=== PATIENT | female | born 1985 | race Caucasian/White ===

== ENCOUNTER 2016-11-27 10:00 | Inpatient (IN) | payer MEDICAID ==
[~2016-11-27] VITALS: Ht 152.4 cm; Wt 82.0 kg
[2016-11-27 10:28] VITALS: Ht 152.4 cm; Wt 82.0 kg
[2016-11-27 10:29] VITALS: BP 103/59; PULSE 102; RESP 10
[2016-11-27] MEDS ORDERED: PREN1TAB79 PO (10:52)
--- NOTE | 2016-11-27 11:16 | TRIAGE ---
OB Triage Datetime Report Generated by CPN: 11/27/2016 11:16 Datetime: 11/27/2016 10:41 Time of Arrival: 11/27/2016 09:05 EGA: 36.1 Arrived By: Ambulatory Arrived From: Home Chief Complaint: SROM AT 0530 Movement: Present Contractions: Denies/Absent Rupture of Membranes: Ruptured Vaginal Bleeding: None Vaginal Discharge: Denies Recent Sexual Intercouse: Denies Abdominal Trauma: Not Applicable Patient Complaints: Other Initial Plan: EFM,CALL DR NUÑEZ Datetime: 11/27/2016 10:40 Maternal Assessment Level of Consciousness: Fully Conscious DTR's/Clonus: DTRs 2+; No Clonus Headache: Denies Blurred Vision: No Respiratory Effort: Unlabored; Regular Rhythm; Equal Expansion Breath Sounds, Left: Clear and Equal Breath Sounds, Right: Clear and Equal Nausea/Vomiting: Denies RUQ Epigastric Pain: Denies Facial Edema: None Temperature Route: Axillary Fall Risk Assessment History of Falling: (0) No Secondary Diagnosis: (0) No Ambulatory Aid: (0) Bedrest/Nurse Assist IV Therapy: (0) No Gait: (0) Normal/Bedrest/Immobile Mental Status: (0) Oriented to Own Ability Fall Score: 0 Fall Risk Score Definition: No Risk: No action required
[2016-11-27 11:19] LABS: ADD SCAN DIFF NO
[2016-11-27] MEDS: LACTATED RINGER'S 1,000 ML IV SCH ×3 (11:22→19:40)
[2016-11-27] MEDS ORDERED: METHYLERGONOVINE 0.2 MG INJ IM PRN ×2 (11:30→18:00)
[2016-11-27] MEDS ORDERED: MISOPROSTOL 200 MCG TAB PR PRN ×2 (11:30→18:00)
[2016-11-27] MEDS ORDERED: CARBOPROST 250 MCG INJ IM PRN ×2 (11:30→18:00)
[2016-11-27] MEDS ORDERED: OXYTOCIN 30 UNITS/LR 500 ML IV PRN ×2 (11:30→18:00)
[2016-11-27] MEDS ORDERED: CEFAZOLIN 2 GM/50 ML (PMX) 50 ML IV SCH (11:30)
[2016-11-27] MEDS ORDERED: OXYTOCIN 30 UNITS/LR 500 ML IV SCH (11:30)
[2016-11-27] MEDS ORDERED: ONDANSETRON 4 MG INJ IV STA (11:48)
[2016-11-27 11:58] LABS: BASOPHILS % 0.2 % (0.0-2.0); EOSINOPHILS # 0.2 10^3/ul (0.0-0.5); EOSINOPHILS % 1.3 % (0.0-7.0); HEMATOCRIT 35.2 % (37.0-47.0); HEMOGLOBIN 11.9 g/dl (12.0-16.0); LYMPHOCYTES % 8.7 % (15.0-51.0); MEAN CORPUSCULAR HEMOGLOBIN 31.3 pg (29.0-33.0); MEAN CORPUSCULAR HGB CONC 33.8 g/dl (32.0-37.0); MEAN CORPUSCULAR VOLUME 92.6 fl (82.0-101.0); MEAN PLATELET VOLUME 10.6 fl (7.4-10.4); MONOCYTE # 0.6 10^3/ul (0.3-0.9); MONOCYTES % 5.5 % (0.0-11.0); NEUTROPHIL # 9.6 10^3/ul (1.6-7.5); NEUTROPHILS % 83.2 % (39.0-77.0); PLATELET COUNT 263 10^3/UL (140-415); WHITE BLOOD COUNT 11.5 10^3/ul (4.8-10.8)
[2016-11-27] MEDS ORDERED: CITRIC ACID/SODIUM CITRATE 15 ML CUP PO PRN ×2 (12:00)
[2016-11-27] MEDS ORDERED: METOCLOPRAMIDE 10 MG INJ IM ONE (12:00)
[2016-11-27 12:01] LABS: PROTIME 13.2 Sec (12.2-14.2)
[2016-11-27 12:02] LABS: PARTIAL THROMBOPLASTIN TIME 27.3 Sec (25.0-35.0)
--- NOTE | 2016-11-27 14:19 | PREOPHP ---
DATE OF ADMISSION: 11/27/2016 HISTORY: A 31-year-old female, 3, para 1-0-1-1, estimated date of delivery 12/24/2016, at 3 6 weeks and 1 day, who presented with spontaneous rupture of membranes and labor contractions. PAST MEDICAL HISTORY: Unremarkable. PAST SURGICAL HISTORY: section. ALLERGIES: NO KNOWN ALLERGIES. FAMILY HISTORY: Noncontributory. PHYSICAL EXAMINATION: VITAL SIGNS: The patient is afebrile. Vital signs are stable. HEAD, NECK AND CHEST: Within normal limits. ABDOMEN: Soft, nontender and gravid. EXTREMITIES: Within normal limits. NEUROLOGIC: Within normal limits. IMPRESSION: at 36 weeks and 1 day, with a previous section, in labor. The patie nt does not desire a trial of labor. PLAN: Delivery by repeat section. The risks, benefits and alternatives of the procedure w ere explained to the patient. The patient said she understood and gave informed consent for the pro cedure. Dictated By: GRACE BUCHANAN/SILVINA Conf#: [id number] DID#: [id number]
[2016-11-27] MEDS ORDERED: FENTAnyl 50 MCG/ML VIAL ONE (14:59)
[2016-11-27] MEDS ORDERED: morphine SULFATE/PF (10 MG/10 ML) INJ ONE (14:59)
[2016-11-27] MEDS ORDERED: PHENYLephrine (100 MCG/ML) 5ML SYG ONE (15:14)
[2016-11-27] MEDS ORDERED: ONDANSETRON 4 MG INJ IV PRN (15:30)
[2016-11-27] MEDS ORDERED: HYDROmorphONE 1 MG/ML SYG IV PRN ×2 (15:30)
[2016-11-27] MEDS ORDERED: NALOXONE (0.4 MG/ML) INJ IV PRN (15:30)
[2016-11-27] MEDS ORDERED: DIPHENHYDRAMINE 50 MG INJ IV PRN (15:30)
--- NOTE | 2016-11-27 17:21 | OPR ---
DATE OF OPERATION: 11/27/2016 PREOPERATIVE DIAGNOSIS: at 36 weeks and 1 day with previous section, in labor. POSTOPERATIVE DIAGNOSES: 1. at 36 weeks and 1 day with previous section, in labor. 2. Omental adhesions. OPERATION PERFORMED: Repeat low transverse section and lysis of adhesions. SURGEON: Grace Herrera MD ASSORTER: Surjit Emery MD ANESTHESIA: Spinal. ANESTHESIOLOGIST: Danis Deluna MD PROCEDURE: The patient was taken to the operating room and placed on the operating table. After pemberton ccessful spinal anesthesia was given, the patient was placed in supine position. The area was prepa red and draped in the usual sterile fashion. Spinal anesthesia was tested and was satisfactory. Us ing a scalpel, Pfannenstiel incision was made about 2 fingerbreadths above the symphysis pubis. The incision was carried to the fascia. The fascia was incised and extended bilaterally with Nichols scis sors. Two Kochers were used to separate the fascia from the muscle. The muscle was dissected down to peritoneum. The peritoneum was secured with 2 Kellys and incised with Metzenbaum scissors. Upon entering the peritoneal cavity, there were omental adhesions involving the anterior aspect of the u terus. In order make an incision on the uterus, sharp lysis of adhesion was performed with the Bovi e. Using a scalpel, a small transverse incision was made in the lower segment of the uterus. Upon entering the uterine cavity, bandage scissors were inserted to extend the incision bilaterally, curv ed up. Baby was delivered from cephalic presentation. After suctioning clear of amniotic fluid, th e baby was handed off to the team in attendance. Apgars were 8 and 9. The placenta was de livered without difficulty. Uterus was closed with #1 Monocryl continuous locked. After assuring h emostasis, both ovaries and tubes were inspected and all looked normal, the peritoneal cavity was ir rigated with warm saline. The peritoneum was closed with 2-0 Vicryl continuous. The fascia was joanne sed with #1 Vicryl continuous in 2 segments. The skin was closed with ignacio. ESTIMATED BLOOD LOSS: 400 mL. COMPLICATIONS: None. COUNTS: All counts were correct. Dictated By: GRACE HERRERA MD GD/NTS Conf#: [id number] DID#: [id number]
[2016-11-27] MEDS: KETOROLAC 30 MG INJ IV PRN (17:53)
[2016-11-27] MEDS ORDERED: OXYCODONE/ACETAMINOPHEN (5/325) TAB PO PRN (18:00)
[2016-11-27] MEDS ORDERED: LANOLIN 7 GM TUBE TOP PRN (18:00)
[2016-11-27 18:40] VITALS: BP 96/55; PULSE 81; RESP 18
[2016-11-27 19:45] VITALS: BP 109/52; PULSE 89; RESP 18
[2016-11-27] MEDS: OXYTOCIN 30 UNITS/LR 500 ML IV SCH ×2 (20:31→22:00)
[2016-11-27] MEDS: SENNA/DOCUSATE NA (8.6MG/50MG) TAB PO SCH (21:00)
[2016-11-28 00:10] VITALS: BP 110/52; PULSE 84; RESP 18
[2016-11-28] MEDS: LACTATED RINGER'S 1,000 ML IV SCH ×3 (01:30→18:00)
[2016-11-28 04:20] VITALS: BP 100/50; PULSE 82; RESP 18
[2016-11-28] MEDS: KETOROLAC 30 MG INJ IV PRN (06:40)
[2016-11-28 08:09] LABS: ADD SCAN DIFF NO
[2016-11-28 08:15] LABS: BASOPHILS % 0.1 % (0.0-2.0); EOSINOPHILS % 0.2 % (0.0-7.0); HEMATOCRIT 32.7 % (37.0-47.0); HEMOGLOBIN 11.1 g/dl (12.0-16.0); LYMPHOCYTES # 0.8 10^3/ul (0.8-2.9); MEAN CORPUSCULAR HEMOGLOBIN 31.6 pg (29.0-33.0); MEAN CORPUSCULAR HGB CONC 33.9 g/dl (32.0-37.0); MEAN CORPUSCULAR VOLUME 93.2 fl (82.0-101.0); MEAN PLATELET VOLUME 10.6 fl (7.4-10.4); MONOCYTES % 6.1 % (0.0-11.0); NEUTROPHIL # 14.2 10^3/ul (1.6-7.5); NEUTROPHILS % 88.2 % (39.0-77.0); PLATELET COUNT 213 10^3/UL (140-415); RED BLOOD COUNT 3.51 10^6/ul (4.20-5.40); RED CELL DISTRIBUTION WIDTH 15.3 % (11.5-14.5); WHITE BLOOD COUNT 16.1 10^3/ul (4.8-10.8)
[2016-11-28] MEDS: SENNA/DOCUSATE NA (8.6MG/50MG) TAB PO SCH ×2 (09:23→20:29)
[2016-11-28 09:31] VITALS: BP 92/51; PULSE 88; RESP 16
[2016-11-28] MEDS: OXYCODONE/ACETAMINOPHEN (5/325) TAB PO PRN ×3 (11:07→20:30)
[2016-11-28 15:53] VITALS: BP 102/52; PULSE 72; RESP 17
--- NOTE | 2016-11-28 18:46 | QN ---
Documentation Comment No complaint Afebrile VSS POD #1 Continue with present care. GRACE NUÑEZ MD Nov 28, 2016 18:46
[2016-11-28 20:30] VITALS: BP 95/58; PULSE 78; RESP 18
[2016-11-28] MEDS: IBUPROFEN 800 MG TAB PO SCH (21:59)
[2016-11-29] MEDS: LACTATED RINGER'S 1,000 ML IV SCH ×3 (02:00→18:00)
[2016-11-29 04:05] VITALS: BP 95/55; RESP 18
[2016-11-29] MEDS: IBUPROFEN 800 MG TAB PO SCH ×3 (05:22→21:52)
[2016-11-29] MEDS: SENNA/DOCUSATE NA (8.6MG/50MG) TAB PO SCH ×2 (08:39→21:52)
[2016-11-29] MEDS: OXYCODONE/ACETAMINOPHEN (5/325) TAB PO PRN ×2 (08:39→18:04)
[2016-11-29 09:15] VITALS: BP 92/60; PULSE 78; RESP 17
[2016-11-29 16:30] VITALS: BP 88/49; PULSE 84; RESP 17
--- NOTE | 2016-11-29 19:33 | QN ---
Documentation Comment No complaint Afebrile VSS Abdomen soft POD #2 Stable Continue with present care. GRACE NUÑEZ MD Nov 29, 2016 19:33
[2016-11-29 20:30] VITALS: BP 87/57; PULSE 81; RESP 20
[2016-11-30 04:00] VITALS: BP 86/60; PULSE 74; RESP 18
[2016-11-30] MEDS: IBUPROFEN 800 MG TAB PO SCH ×2 (05:49→13:38)
[2016-11-30] MEDS: SENNA/DOCUSATE NA (8.6MG/50MG) TAB PO SCH (08:01)
[2016-11-30] MEDS: OXYCODONE/ACETAMINOPHEN (5/325) TAB PO PRN (08:02)
[2016-11-30 08:09] LABS: ADD SCAN DIFF NO
[2016-11-30 08:12] LABS: BASOPHILS % 0.2 % (0.0-2.0); EOSINOPHILS # 0.3 10^3/ul (0.0-0.5); EOSINOPHILS % 2.4 % (0.0-7.0); HEMATOCRIT 33.2 % (37.0-47.0); LYMPHOCYTES # 1.3 10^3/ul (0.8-2.9); LYMPHOCYTES % 12.4 % (15.0-51.0); MEAN CORPUSCULAR HEMOGLOBIN 31.4 pg (29.0-33.0); MEAN CORPUSCULAR HGB CONC 33.1 g/dl (32.0-37.0); MEAN CORPUSCULAR VOLUME 94.9 fl (82.0-101.0); MEAN PLATELET VOLUME 10.3 fl (7.4-10.4); MONOCYTE # 0.6 10^3/ul (0.3-0.9); MONOCYTES % 5.4 % (0.0-11.0); NEUTROPHIL # 8.4 10^3/ul (1.6-7.5); NEUTROPHILS % 78.2 % (39.0-77.0); PLATELET COUNT 263 10^3/UL (140-415); RED CELL DISTRIBUTION WIDTH 15.5 % (11.5-14.5); WHITE BLOOD COUNT 10.7 10^3/ul (4.8-10.8)
[2016-11-30 08:27] VITALS: BP 98/63; PULSE 76; RESP 20
[2016-11-30] MEDS ORDERED: DIPHTH/TET/ACEL PERTUSS (ADULT) 0.5 ML VIAL IM* ONE (09:00)
--- NOTE | 2016-11-30 12:42 | DS ---
Date/Time of Note Date/Time of Note DATE: 11/30/16 TIME: 12:39 Obstetrical Discharge Record Final Diagnosis Final Diagnosis: delivered Other Final Diagnosis labor Section Section: Repeat Complications Rupture of Membranes: Yes Gestational Age at Rupture 36 weeks Condition on Discharge Physical Assessment Voiding: Yes Bowel Movement: Yes Breast: Soft, non-tender Fundus: Firm Abdomen and Incision: Abdomen soft ND Incision clean and dry Calf Tenderness: No Patient Condition: Stable GRACE NUÑEZ MD Nov 30, 2016 12:42
== END 2016-11-30 16:50 | disposition home or self-care (01) | DRG 765 ==
LOC: OBT 10:00 → L-D 10:01 → OBT 11:00 → L-D 14:15 → PP1 18:30
PROVIDERS: ADMIT Obstetrics & Gynecology; ATTEND Obstetrics & Gynecology
PROC: 10D00Z1 Extraction of Products of Conception, Low, Open Approach (ICD-10-PCS; principal; 2016-11-27 15:15)
DX: O34.219 Maternal care for unspecified type scar from previous cesarean delivery (principal); O60.14X0 Preterm labor third trimester with preterm delivery third trimester, not applicable or unspecified; Z3A.36 36 weeks gestation of pregnancy; Z37.0 Single live birth
CPT/HCPCS: 84112; 85025; 85610; 85730; 86592; 86850; 86900; 86901; 87340; 90715; G0463; J0690; J1885; J2274; J2370; J2405; J2590; J2765; J3010; J7120